=== PATIENT | female | born 1950 | race Caucasian/White ===

== ENCOUNTER → 2017-05-26 | Outpatient (CLI) | payer MEDICARE, OTHER ==
[~2017-05-26] MED LIST: ALEN70TA43 PO; ASCO100T15 PO; ASPI-715 PO; ATOR40TA24 PO; BIS10S PR; CITA-156 PO; CYAN25004 PO; DICL1TAB52 PO; ENO40I SQ; ERGO400T9 PO; FERR236T3 PO; FOL1 PO; GLUC100026 PO; IRON18TA2 PO; LEVO150T72 PO; LOR7.5/325 PO; METH-280 PO; MOM PO; MULT1TAB64 PO; OMEG300C PO; OMEP40CA48 PO; OXY10 PO; PAN40 PO; PRA20 PO; PRAV40TA77 PO; TRAM-420 PO; UBID30CA27 PO; VITA-175 PO; ZINC30CA2 PO; [UNRECOGNIZED DRUG - CODE] PO
--- NOTE | 2017-05-26 09:50 | RADIOLOGY IMAGING REPORT ---
FACILITY: [facility] PATIENT NAME: Milly Jang : 1950 MR: [id number] V: [id number] EXAM DATE: ORDERING PHYSICIAN: CLAUDIO JUAREZ TECHNOLOGIST: Location: [facility] - [place] Patient: Milly Jang : 1950 Visit/Account:[id number] Date of Sevice: 05/26/2017 DEXA Scan Clinical history: History of gastric bypass, ovarian failure, hypothyroidism. Comparison: DEXA scan from 05/03/2014. LUMBAR SPINE: The bone mineral density (BMD) measured from L1-L4 correlates with a Z-score of -2.3 and a T-score of -3.2 which is osteoporosis as defined by the World Health Organization. The corresponding risk of f racture in the lumbar spine is 8-12 times increased compared with a young adult reference population. This value has decrease by 5.2 % since the prior study. More than 5% change is considered signific ant. HIP: Bone mineral density (BMD) measured in the LEFT total hip region correlates with a Z-score -2.5 and a T-score of -3.2 which is osteoporosis as defined by the World Health Organization. The correspondin g risk of fracture in the hip is a to 12 times increased compared to a young adult reference populati on. This value has decrease by 8.6 % since the prior study. More than 5% change is considered signif icant. T score left femoral neck -3 Bone mineral density (BMD) measured in the Femoral Neck region measures 0.620 g/cm?. IMPRESSION: 1. Lumbar spine: Osteoporosis. There has been 5.2% decrease in the bone mineral density since the p revious exam. 2. Left Total Hip: Osteoporosis. There has been 8.6% decrease in the bone mineral density since the previous exam. 3. Femoral Neck: Bone Mineral Density is 0.620 g/cm? The next DEXA scan of this patient should include the following sites: L1-L4 and the left hip. FRAX? WHO Fracture Risk Assessment Tool link: <http://www.shef.ac.uk/FRAX/tool.jsp?locationValue=9> PLEASE NOTE: 1) The World Health Organization defines low BMD as follows: T-score Normal > -1 Osteopenia < -1 and > -2.5 Osteoporosis < -2.5 without fractures Established osteoporosis < -2.5 with fractures 2) In general, you may wish to consider: Diagnosis Treatment Follow-up DEXA Normal BMD Prevention 2-3 years Osteopenia Prevention/therapy 1-2 years Osteoporosis Therapy Yearly 3) Fracture risk estimated from the T-score is more accurate for vertebral fractures (often spontane ous) than for hip fractures. Report Dictated By: Yuliet Cali MD at 05/26/2017 9:41 AM Report E-Signed By: Yuliet Cali MD at 05/26/2017 9:44 AM WSN:[email or web address]
--- NOTE | 2017-05-28 10:17 | RADIOLOGY IMAGING REPORT ---
[place] [facility] [place] NAME[place] MERISSA YADAV : [id number] MR: [id number] V: [id number] EXAM DATE: [id number] ORDERING PHYSICIAN: CLAUDIO JUAREZ TECHNOLOGIST: Tana Fitzpatrick PROCEDURE:BILATERAL DIGITAL SCREENING MAMMOGRAM WITH CAD ASSISTED INTERPRETATION & 3D TOMOSYNTHESIS COMPARISON:Prior mammograms 05/11/16, 05/07/15, 05/03/14, 01/12/13, 01/12/12, 01/09/11 INDICATIONS:SCREENING FINDINGS: There is predominantly fatty replacement throughout the breasts. The parenchymal pattern has remained stable allowing for difference in mammographic technique & patient positioning. There is no evidence of malignant appearing mass, malignant appearing calcifications or other secondary sign of malignancy in either breast. DIAGNOSTIC CATEGORY 1--NEGATIVE. RECOMMENDATIONS: ROUTINE MAMMOGRAM AND CLINICAL EVALUATION. IMPRESSION: BIRADS 1: Negative No significant abnormality is seen Dictated by: Yuliet Cali M.D. on 05/26/2017 at 14:04 Transcribed by: YESI on 05/26/2017 at 14:13 Approved by: Yuliet Cali M.D. on 05/28/2017 at 10:16 [facility]
== END ==
LOC: MAMO 01:07
PROVIDERS: ATTEND Nurse Practitioner Psychiatric/Mental Health
DX: Z13.820 Encounter for screening for osteoporosis (principal); Z12.31 Encounter for screening mammogram for malignant neoplasm of breast; M81.0 Age-related osteoporosis without current pathological fracture; E89.41 Symptomatic postprocedural ovarian failure
CPT/HCPCS: 77063; 77067; 77080

== ENCOUNTER 2018-05-23 00:40 | Outpatient (RCR) | payer MEDICARE, OTHER ==
[2018-05-24] MEDS ORDERED: REGADENOSON 0.4 MG/5 ML SYR ONE (07:30)
--- NOTE | 2018-05-24 12:50 | RADIOLOGY IMAGING REPORT ---
FACILITY: [facility] [place] PATIENT NAME: Milly Jang : 1950 MR: [id number] V: [id number] EXAM DATE: ORDERING PHYSICIAN: KHANH MEI TECHNOLOGIST: Location: [facility] [place] Patient: Milly Jang : 1950 Visit/Account:[id number] Date of Sevice: 05/23/2018 REGADENOSON (LEXISCAN) MYOCARDIAL PERFUSION IMAGING. EXAMINATION: Single isotope SPECT imaging with regadenoson infusion and gated SPECT imaging. DATE OF EXAMINATION: May 232018. This was a 2 day study due to patient body habitus REQUESTING PHYSICIAN:SIGIFREDO INDICATION: Coronary artery disease PROCEDURE: After informed consent the patient received an intravenous injection of Tc-99m sestamibi followed at an appropriate time interval by rest imaging. The patient then subsequently received an intravenous infusion of 0.4 mg of regadenoson per protocol without complication. Resting heart rate was 55 bpm with a peak heart rate of 75 bpm. Blood pressure at rest was 115/64 and following infusi on was 115/64 . Baseline EKG demonstrates sinus rhythm. There were no EKG changes of ischemia follo wing infusion. Non-specific symptoms were reported. The patient then received an intravenous inject ion of Tc-99m sestamibi followed by stress imaging. DOSE of Tc-99m sestamibi (mCi): REST: 20.5 STRESS: 19.7 RAW DATA: Examination of the summed raw data revealed a good quality study. MYOCARDIAL PERFUSION: The tomographic images demonstrate normal myocardial perfusion without evidenc e of myocardial ischemia or infarct. GATED IMAGES: The gated images demonstrate normal LV systolic performance and wall motion with LVEF 82%. IMPRESSION: 1. Nondiagnostic ECG portion of Lexiscan stress test. 2. Normal myocardial perfusion study without evidence of myocardial ischemia or infarct. 3. Normal LV systolic performance and wall motion with LVEF 82% Report Dictated By: Be Banks at 05/24/2018 12:41 PM Report E-Signed By: Be Banks at 05/24/2018 12:46 PM WSN:[id number]
--- NOTE | 2018-06-07 10:27 | RT STRESS TEST REPORT ---
FACILITY: [facility] - [place] PATIENT NAME: MERISSA YADAV : [id number] MR: [id number] V: [id number] EXAM DATE: ORDERING PHYSICIAN: ALESHA SUTTON TECHNOLOGIST: Annia Acquisition Time: 2018-05-24 09:49:02 Total Exercise Time: 00:01:00 Test Indications: CAD Medications: SEE CHART Protocol: LEXISCAN Max HR: 075 BPM 48% of Pred: 154 BPM Max BP: 115/064 mmHG Max Work Load: 1.0 METS Impression No EKG changes to suggest ischemia Nuclear medicine report to follow Confirmed by ALESHA SUTTON ([id number]) on 06/07/2018 10:27:06 AM Referred By: Overread By: ALESHA SUTTON
== END 2018-05-24 18:00 | disposition home or self-care (01) ==
LOC: NUC 00:40
PROVIDERS: ATTEND Internal Medicine Cardiovascular Disease
DX: I25.10 Atherosclerotic heart disease of native coronary artery without angina pectoris (principal)
CPT/HCPCS: 78452; 93017; A9500; J2785

== ENCOUNTER → 2018-06-10 | Outpatient (CLI) | payer MEDICARE, OTHER | LOC: LAB 12:47 | PROVIDERS: ATTEND Nurse Practitioner Psychiatric/Mental Health | DX: E03.9 Hypothyroidism, unspecified (principal); R73.9 Hyperglycemia, unspecified; Z79.899 Other long term (current) drug therapy | CPT/HCPCS: 36415; 82040; 82247; 82310; 82374; 82435; 82565; 82947; 83036; 84075; 84132; 84155; 84295; 84443; 84450; 84460; 84520 ==

== ENCOUNTER → 2018-06-10 | Outpatient (CLI) | payer MEDICARE, OTHER | LOC: US 01:22 | PROVIDERS: ATTEND Internal Medicine Cardiovascular Disease | DX: I25.10 Atherosclerotic heart disease of native coronary artery without angina pectoris (principal); I51.7 Cardiomegaly | CPT/HCPCS: 93306 ==

== ENCOUNTER → 2018-06-10 | Outpatient (CLI) | payer MEDICARE, OTHER ==
--- NOTE | 2018-06-21 10:14 | RADIOLOGY IMAGING REPORT ---
FACILITY: [facility] PATIENT NAME: MERISSA YADAV : [id number] MR: [id number] V: [id number] EXAM DATE: [id number] ORDERING PHYSICIAN: CLAUDIO JUAREZ TECHNOLOGIST: Tana Fitzpatrick PROCEDURE:BILATERAL DIGITAL SCREENING MAMMOGRAM WITH CAD ASSISTED INTERPRETATION & 3D TOMOSYNTHESIS COMPARISON:Prior mammograms 05/26/17, prior to 01/12/2012. INDICATIONS:screening FINDINGS: Breast parenchyma is predominantly fatty. There are no mammographic findings concerning for malignancy. No significant interval change from priors. DIAGNOSTIC CATEGORY 1--NEGATIVE. RECOMMENDATIONS: ROUTINE MAMMOGRAM AND CLINICAL EVALUATION IN 1 YR. IMPRESSION: BIRADS 1: Negative. Dictated by: Aramis Arriaga on 06/10/2018 at 15:40 Transcribed by: YESI on 06/10/2018 at 16:16 Approved by: Aramis Arriaga on 06/10/2018 at 16:36 [facility]
== END ==
LOC: MAMO 01:22
PROVIDERS: ATTEND Nurse Practitioner Psychiatric/Mental Health
DX: Z12.31 Encounter for screening mammogram for malignant neoplasm of breast (principal); I25.10 Atherosclerotic heart disease of native coronary artery without angina pectoris
CPT/HCPCS: 77063; 77067